=== PATIENT | male | born 1965 | race Caucasian/White ===

== ENCOUNTER → 2019-05-29 10:06 | Outpatient (CLI) | payer OTHER, SELFPAY ==
--- NOTE | 2019-05-29 10:13 | XR_ITS ---
PROCEDURE: XR CERVICAL SPINE 3V CLINICAL INDICATION: CERVICO OCCIPUTAL NEURALGIA,DDD COMPARISON: No exams were available for comparison FINDINGS: There is normal curvature and alignment. C1 through C7 appear intact. Disc spaces are well maintained throughout. There is a small bone fragment in the soft tissues posterior to the spinous process of C5 likely an ossification within the nuchal ligament in usually secondary to repeated minor trauma. The prevertebral soft tissues are normal and the odontoid is normal. IMPRESSION: There is no acute osseous pathology and there is no significant degenerate change noted Dictated by: Dr. Toby Castillo MD 05/29/2019 14:[address] Toby Castillo MD in [place] 05/29/2019 14:07
== END ==
PROVIDERS: Visit Provider Orthopaedic Surgery
DX: M54.81 Occipital neuralgia (principal); M50.30 Other cervical disc degeneration, unspecified cervical region
CPT/HCPCS: 72040